=== PATIENT | female | born 1940 | race Caucasian/White ===

== ENCOUNTER → 2016-05-09 | Outpatient (CLI) | payer MEDICARE ==
[~2016-05-09] MED LIST: CEPH-507 PO; HCTZ12.5T PO; HYDR-2013 PO; HYDR-3702 PO; LEVO88TA5 PO; LISI5TAB PO; LISI5TAB14 PO; NITR100C3 PO; ONDA4TAB8 PO; ONDAN4ODT PO; SIMV5TAB51 PO
[2016-05-09 08:25] LABS: BASOPHILS % (AUTO) 1 % (0-2); EOSINOPHILS # (AUTO) 0.4 10^3uL; EOSINOPHILS % (AUTO) 6 % (0-4); LYMPHOCYTES # (AUTO) 1.1 X10^3; MEAN CORPUSCULAR HGB CONC 33.1 g/dL (31.0-37.0); MEAN CORPUSCULAR VOLUME 97 FL (80-100); MEAN PLATELET VOLUME 11.2 FL (6.0-9.5); MONOCYTES # (AUTO) 0.9 X10^3; MONOCYTES % (AUTO) 15 % (3-11); NEUTROPHILS # (AUTO) 3.8 X10^3; NEUTROPHILS % (AUTO) 60 % (51-67); PLATELET COUNT 239 10^3uL (150-450); WHITE BLOOD COUNT 6.27 10^3uL (4.0-11.0)
[2016-05-09 08:38] LABS: ALBUMIN 4.2 g/dL (3.4-5.0); ANION GAP 13.5 MEQ/L (3-15); CALCULATED IONIZED CALCIUM 4.3 mg/dL (3.8-4.6)
[2016-05-09 08:50] LABS: MEAN CORPUSCULAR HEMOGLOBIN 31.9 PG (26.0-34.0)
--- NOTE | 2016-05-09 11:05 | Diagnostic Imaging Report ---
INDICATION: 76-year-old postmenopausal female. FINDINGS: This scan is considered osteopenic according to the World Health Organization guidelines. The lowest T score is -1.6 in the left femoral neck. This indicates an increased risk of fracture. Please refer to the detailed Bone Density report faxed separately from this report. IMPRESSION: Osteopenia with a moderate fracture risk. Dictated by: Dictated on workstation # [id number]
--- NOTE | 2016-05-10 19:39 | Diagnostic Imaging Report ---
DIG FAHAD BILAT SCREEN W CAD COMPARISON: 05/11/2014 INDICATION: Screening mammography. TECHNIQUE: Digital screening mammography was obtained with a computer-aided detection (CAD) system. FINDINGS: The breasts are almost entirely fatty. Stable benign monomorphic calcifications in the central right breast. No suspicious microcalcifications on either side. No dominant mass or architectural distortion to suggest malignancy. IMPRESSION: Stable mammogram without evidence of malignancy. Followup screening mammogram in 12 months is recommended. ACR BI-RADS Category 2: Benign findings. Result letter will be mailed to the patient. Note: At least 10% of breast cancer is not imaged by mammography. Dictated by: Dictated on workstation # [id number]
== END ==
LOC: RAD 08:02
PROVIDERS: ATTEND Internal Medicine
DX: Z00.00 Encounter for general adult medical examination without abnormal findings (principal); Z12.31 Encounter for screening mammogram for malignant neoplasm of breast; Z78.0 Asymptomatic menopausal state; I10 Essential (primary) hypertension; E78.4 Other hyperlipidemia; E03.8 Other specified hypothyroidism; R79.89 Other specified abnormal findings of blood chemistry; K21.9 Gastro-esophageal reflux disease without esophagitis; M85.89 Other specified disorders of bone density and structure, multiple sites
CPT/HCPCS: 36415; 77080; 80053; 80061; 82360; 84443; 85025; G0202; 82306

== ENCOUNTER 2016-05-27 21:55 | Emergency (ER) | payer MEDICARE ==
[~2016-05-27] VITALS: Ht 132.1 cm; Wt 90.9 kg
[2016-05-27] MEDS ORDERED: NS IV 500 ML 500 ML IV SCH (22:50)
[2016-05-27] MEDS ORDERED: SODIUM CHLORIDE FLUSH 3 ML SYR IV PRN (22:50)
[2016-05-27] MEDS ORDERED: SODIUM CHLORIDE FLUSH 10 ML SYR IV PRN (22:50)
[2016-05-27] MEDS ORDERED: ACETAMINOPHEN 500 MG TAB (TYLENOL) PO ONE (22:50)
[2016-05-27 23:20] LABS: MEAN CORPUSCULAR HGB CONC 33.6 g/dL (31.0-37.0); MEAN CORPUSCULAR VOLUME 96 FL (80-100); MEAN PLATELET VOLUME 11.5 FL (6.0-9.5); PLATELET COUNT 213 10^3uL (150-450); WHITE BLOOD COUNT 16.65 10^3uL (4.0-11.0)
[2016-05-27 23:26] LABS: ALBUMIN 4.2 g/dL (3.4-5.0); ANION GAP 14.2 MEQ/L (3-15); CALCULATED IONIZED CALCIUM 4.1 mg/dL (3.8-4.6); TOTAL PROTEIN 7.3 g/dL (6.4-8.5)
[2016-05-27 23:40] LABS: MEAN CORPUSCULAR HEMOGLOBIN 32.2 PG (26.0-34.0)
[2016-05-27 23:50] LABS: BAND NEUTROPHILS % 0 % (0-6); SEGMENTED NEUTROPHILS % 90 % (51-67)
[2016-05-27 23:51] LABS: ANISOCYTOSIS SLIGHT; EOSINOPHILS % 1 % (0-4); LYMPHOCYTES # 0.3 #; MONOCYTES # 1.1 #; MONOCYTES % 7 % (3-11); POIKILOCYTOSIS SLIGHT; RBC MORPH SEE REFERENCE (NORMAL); TOTAL CELLS COUNTED 100
[2016-05-28 00:46] LABS: BILIRUBIN,URINE Negative (Negative); CLARITY,URINE Cloudy; COLOR,URINE Yellow; GLUCOSE, URINE (UA) Negative (Negative); LEUKOCYTE ESTERASE ,URINE 1+ (Negative); UROBILINOGEN,URINE 0.2 mg/dL (0.2-1.0)
[2016-05-28 01:00] LABS: RBC,URINE 0-2 /HPF; URINE CENTRIFUGED VOLUME 12 mL
[2016-05-28] MEDS ORDERED: CEPHALEXIN 500 MG (KEFLEX) CAPSULE PO ONE (01:05)
[2016-05-28 01:31] VITALS: BP 138/73
[2016-05-28 13:46] LABS: HEPATITIS A ANTIBODY IGM Negative; HEPATITIS B CORE ABY IGM Negative; HEPATITIS B SURFACE ANTIGEN C Negative
== END 2016-05-28 01:20 | disposition home or self-care (01) ==
LOC: ED 21:56
DX: N30.90 Cystitis, unspecified without hematuria (principal); K52.9 Noninfective gastroenteritis and colitis, unspecified; R50.81 Fever presenting with conditions classified elsewhere; E03.9 Hypothyroidism, unspecified; E78.00 Pure hypercholesterolemia, unspecified; G47.30 Sleep apnea, unspecified; Z87.440 Personal history of urinary (tract) infections
CPT/HCPCS: 36415; 71020; 80053; 80074; 81003; 81015; 85025; 87040; 87088; 87486; 87581; 87633; 87798; 96360; 99283; A9270; J7040

== ENCOUNTER → 2016-06-01 | Outpatient (CLI) | payer MEDICARE ==
[2016-06-01 08:46] LABS: BASOPHILS % (AUTO) 1 % (0-2); EOSINOPHILS # (AUTO) 0.5 10^3uL; EOSINOPHILS % (AUTO) 6 % (0-4); LYMPHOCYTES # (AUTO) 1.2 X10^3; MEAN CORPUSCULAR HEMOGLOBIN 32.4 PG (26.0-34.0); MEAN CORPUSCULAR HGB CONC 32.9 g/dL (31.0-37.0); MEAN CORPUSCULAR VOLUME 98 FL (80-100); MEAN PLATELET VOLUME 11.2 FL (6.0-9.5); MONOCYTES # (AUTO) 0.6 X10^3; MONOCYTES % (AUTO) 8 % (3-11); NEUTROPHILS # (AUTO) 5.1 X10^3; NEUTROPHILS % (AUTO) 69 % (51-67); PLATELET COUNT 245 10^3uL (150-450); WHITE BLOOD COUNT 7.49 10^3uL (4.0-11.0)
[2016-06-01 08:59] LABS: ALBUMIN 4.1 g/dL (3.4-5.0); TOTAL PROTEIN 7.4 g/dL (6.4-8.5)
== END ==
LOC: LAB 08:34
PROVIDERS: ATTEND Internal Medicine
DX: I10 Essential (primary) hypertension (principal)
CPT/HCPCS: 36415; 80076; 85025

== ENCOUNTER 2016-06-24 12:50 | Emergency (ER) | payer MEDICARE ==
[~2016-06-24] VITALS: Ht 162.6 cm; Wt 96.0 kg
[2016-06-24 13:11] LABS: BILIRUBIN,URINE Negative (Negative); CLARITY,URINE Cloudy; COLOR,URINE Yellow; GLUCOSE, URINE (UA) Negative (Negative); LEUKOCYTE ESTERASE ,URINE 1+ (Negative); UROBILINOGEN,URINE 0.2 mg/dL (0.2-1.0)
[2016-06-24 13:13] LABS: URINE CENTRIFUGED VOLUME 10 mL
[2016-06-24 13:22] LABS: CALCIUM OXALATE CRYSTALS,UR 1+ /HPF; RBC,URINE 20-50 /HPF
[2016-06-24 13:50] LABS: MEAN CORPUSCULAR HGB CONC 33.8 g/dL (31.0-37.0); MEAN CORPUSCULAR VOLUME 97 FL (80-100); MEAN PLATELET VOLUME 11.1 FL (6.0-9.5); PLATELET COUNT 250 10^3uL (150-450); WHITE BLOOD COUNT 11.24 10^3uL (4.0-11.0)
[2016-06-24 14:05] LABS: ANION GAP 13.8 MEQ/L (3-15)
[2016-06-24 14:18] LABS: CALCULATED IONIZED CALCIUM 4.3 mg/dL (3.8-4.6); TOTAL PROTEIN 6.7 g/dL (6.4-8.5)
[2016-06-24 14:22] LABS: BAND NEUTROPHILS % 0 % (0-6); EOSINOPHILS % 0 % (0-4); LYMPHOCYTES # 0.8 #; MEAN CORPUSCULAR HEMOGLOBIN 32.6 PG (26.0-34.0); MONOCYTES # 0.6 #; MONOCYTES % 5 % (3-11); SEGMENTED NEUTROPHILS % 88 % (51-67); TOTAL CELLS COUNTED 100
[2016-06-24 14:23] LABS: RBC MORPH NORMAL (NORMAL)
[2016-06-24] MEDS ORDERED: HYDROmorphone 1 MG/ML (DILAUDID) SYRINGE IV ONE (14:35)
[2016-06-24] MEDS ORDERED: cefTRIAXone SODIUM 1,000 MG in SODIUM CHLORIDE 50 ML IV ONE (14:44)
[2016-06-24] MEDS ORDERED: SODIUM CHLORIDE FLUSH 3 ML SYR IV PRN (14:45)
[2016-06-24] MEDS ORDERED: SODIUM CHLORIDE FLUSH 10 ML SYR IV PRN (14:45)
--- NOTE | 2016-06-24 15:15 | NUR ---
Patient resting quietly on ER cart. IVF and Rocephin continue to infuse well per pump. IV saline lock site without redness or swelling. Spouse remains in room with patient.
--- NOTE | 2016-06-24 16:17 | NUR ---
Now OOB and sitting in straight back chair - spouse helping her get dressed.
[2016-06-24 22:39] VITALS: BP 124/51
== END 2016-06-24 16:24 | disposition home or self-care (01) ==
LOC: EDUNIT# 12:50 → ED 12:51
DX: N39.0 Urinary tract infection, site not specified (principal); N13.6 Pyonephrosis
CPT/HCPCS: 36415; 74176; 80053; 81003; 81015; 83690; 85025; 86140; 87088; 96361; 96365; 96375; 99285; J0696; J1170; J7030; 99283